=== PATIENT | male | born 1935 | race Caucasian/White ===

== ENCOUNTER → 2017-04-28 | Outpatient (CLI) | payer MEDICARE, BC ==
[2015-12-27 11:57] VITALS: BP 156/69
[~2017-04-28] MED LIST: AMLO2.5T PO; ASCO-78 PO; ASPI325T8 PO; CARV12.52 PO; LEVO50TA5 PO; LISI-334 PO; MULT-245 PO; SIMV10TA3 PO
== END | disposition home or self-care (01) ==
LOC: RT 09:53
PROVIDERS: ATTEND Psychiatry & Neurology Neurology
DX: I63.9 Cerebral infarction, unspecified (principal); R41.3 Other amnesia
CPT/HCPCS: 95816

== ENCOUNTER → 2017-05-05 | Outpatient (CLI) | payer MEDICARE, BC ==
[2015-12-27 11:57] VITALS: BP 156/69
[~2017-05-05] MED LIST changes: +GADOBUTROL 7.5 MMOL/7.5 ML VIAL IV ONE
--- NOTE | 2017-05-05 14:09 | RAD ---
MRI of the Brain without and with Contrast 05/05/2017 Clinical History: Recent seizures. Technique: Unenhanced T1-weighted sagittal and axial and FLAIR, T2-weighted, gradient echo and diffusion-weighted axial images of the brain were obtained. Additionally FLAIR coronal images through the temporal lobes were obtained. After the intravenous administration of 7.5 cc of Gadavist, enhanced T1-weighted axial and coronal images of the brain were obtained. Findings: Comparison studies dated 02/24/2016. There is generalized parenchymal atrophy. Patchy, confluent and multiple focal areas of abnormally increased signal intensity are seen within the periventricular and subcortical white matter of both cerebral hemispheres along with the ricardo on the FLAIR and T2-weighted images consistent with areas of small vessel ischemic disease. An area of encephalomalacia is seen involving the right occipital lobe extending to involve the medial right temporal lobe. No acute parenchymal abnormality is seen. No abnormal area of contrast enhancement is noted. No extra-axial fluid collection is seen. There is no MRI evidence of acute ischemia/infarction. Mild to moderate mucosal thickening in seen throughout the paranasal sinuses. There are minimal bilateral mastoid effusions. Normal flow voids are seen within the major vascular structures surrounding the brain parenchyma. Impression: No acute parenchymal abnormality is seen. Electronically signed by: Abhay Carvalho MD (05/05/2017 2:05 PM) [id number]
== END | disposition home or self-care (01) ==
LOC: MRI 10:04
PROVIDERS: ATTEND Psychiatry & Neurology Neurology
DX: R41.3 Other amnesia (principal)
CPT/HCPCS: 70553; A9585

== ENCOUNTER 2017-07-25 14:38 | Inpatient (IN) | payer MEDICARE, BC ==
[~2017-07-25] VITALS: Ht 175.3 cm; Wt 83.2 kg
[~2017-07-25 14:38] MED LIST changes: -GADOBUTROL 7.5 MMOL/7.5 ML VIAL IV ONE
[2017-07-25 14:57] LABS: HEMOGLOBIN 13.4 g/dL (13.0-17.5); RED BLOOD COUNT 4.37 x10^6/uL (4.30-5.70); RED CELL DISTRIBUTION WIDTH 13.7 % (11.5-14.5); WHITE BLOOD COUNT 8.3 x10^3/uL (4.0-11.0)
[2017-07-25 15:07] LABS: INR 1.1 (0.8-1.1); PROTHROMBIN TIME PATIENT 13.6 SEC (11.7-14.0)
[2017-07-25 15:10] LABS: CALCIUM 9.4 mg/dL (8.5-10.1); CREATININE 1.2 mg/dL (0.7-1.3)
--- NOTE | 2017-07-25 15:26 | RAD ---
CT head Indication: CVA, left-sided weakness. Technique: CT head without IV contrast Comparison: Previous MRI from 05/05/2017 Findings: No pathologic extra-axial fluid collection. Stable area of encephalomalacia is seen within the right occipital lobe extending to the occipital horn of the right lateral ventricle. There is mild diffuse cerebral and cerebellar atrophy with ex vacuo dilation of the ventricles. No acute intracranial bleed. Atherosclerotic disease of bilateral cavernous carotid arteries. Confluent periventricular and deep white matter low attenuation noted. Visualized orbits are within normal limits. No calvarial lesions. There is mucoperiosteal thickening noted of the ethmoid air cells. Mastoid air cells are clear. Impression: 1. Stable area of encephalomalacia in the right occipital lobe compatible with prior infarct. If concern for acute ischemic stroke is high, please consider MRI brain. 2. No acute intracranial bleed. 3. White matter changes likely secondary to chronic ischemic microvascular disease. PQRS Compliance Statement: One or more of the following individualized dose reduction techniques were utilized for this examination: 1. Automated exposure control 2. Adjustment of the mA and/or kV according to patient size 3. Use of iterative reconstruction technique
[2017-07-25] MEDS ORDERED: MORPHINE SULFATE 4 MG/ML DISP.SYRIN. IV ONE (15:30)
--- NOTE | 2017-07-25 15:46 | EKG ---
[facility] [address] [place] [address] Test Date: 2017-07-25 Test Time: 14:47:30 Pat Name: ALEX AVENDAÑO Department: Room: Gender: M Creeler: : 1935 Requested By: DIAMOND PENNINGTON Order Number: [id number] Reading MD: Domenico Castellanos Measurements Intervals [place] Rate: 57 P: CO: QRS: 5 QRSD: 94 T: 25 QT: 408 QTc: 400 Interpretive Statements SR Electronically Signed On 08-16-2017 14:30:13 CDT by Domenico Castellanos
--- NOTE | 2017-07-25 15:59 | PDOC2 ---
NEUROLOGY CONSULT Date of Admission Date of Admission DATE: 07/25/17 TIME: 15:57 Reason for Consult Reason for Consult: Stroke symptoms Referring Physician Referring Physician: Dr. 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 The echocardiogram and carotid Dopplers were negative. A few months later he had a seizure. He was started on levetiracetam but on higher doses had episodes of weakness and falling to one side. The dose was decreased and he did well until about 1 PM today when he got out of the car and was falling to the left side. He has gait disorder due to osteoarthritis in both knees, but was worse. He has recovered to baseline here in the emergency department. He does have a chronic left visual field cut. He also has some memory problems. No one has witnessed any recent seizures. There have been no head injuries. Past Medical History Cardiovascular: HTN, Hyperlipidemia, Valve insufficiency, Pulmonary hypertension CENTRAL NERVOUS SYSTEM: CVA, Vertigo Heme/Onc: Anemia NOS, B12 deficiency Hepatobiliary: Cirrhosis (nonalcoholic) Musculoskeletal: Osteoarthritis Renal/: Chronic renal insuff (CKD II) Endocrine: Hypothyroidism Past Surgical History Past Surgical History: No pertinent history Family History Family History: Cancer Social History Social History , no tobacco or alcohol, Current Medications Current Medications Current Medications Morphine Sulfate 4 mg 1X ONCE IV ; Start 07/25/17 at 15:30; Stop 07/25/17 at 15 :31; Status DC Aspirin (Ecotrin) 162 mg DAILYWBKFT PO ; Start 07/26/17 at 08:00 Active Scripts Active Vitamin C (Ascorbate Calcium) 500 Mg Tablet 500 Mg PO DAILY Reported Aspirin 325 Mg Tablet 1 Tab PO DAILY Multi Vitamin Daily (Multivitamin) 1 Each Tablet 1 Each PO DAILY Amlodipine Besylate 2.5 Mg Tablet 2.5 Mg PO DAILY Carvedilol 12.5 Mg Tablet 1 Tab PO BID Levothyroxine Sodium 50 Mcg Tablet 1 Tab PO DAILY Simvastatin 10 Mg Tablet 1 Tab PO QHS Lisinopril 20 Mg Tablet 20 Mg PO BID Allergies Allergies: Coded Allergies: Penicillins (Verified Allergy, Intermediate, Itching, 12/25/15) Sulfa (Sulfonamide Antibiotics) (Unverified Allergy, Intermediate, PARALISIS OF LOWER LEGS, 12/25/15) tamsulosin (Verified Allergy, Intermediate, hives, 12/25/15) ROS Review of System Patient denies fevers, chills, weight loss, dyspnea, angina, abdominal pain, change in bowels, or dysuria. 14 point review of systems is negative. Physical Exam Physical Examination PHYSICAL EXAMINATION: Vital signs: see above. General appearance is normal and in no acute distress. HEENT: Normocephalic and nontraumatic. Eyes, nose, ears, and throat are unremarkable. Neck is supple. No lymphadenopathy. No bruits are heard over the carotid artery. No crepitus. NEUROLOGICAL EXAMINATION: Mental Status Examination: Alert. Oriented to time, place, and person. Answers questions and follows commends. Pupils are equal round and reactive to light and accommodation. Extraocular movements are intact. Visual bradley: left field cut. No motor or sensory deficits on the facial exam. Uvula in the midline and the soft palate elevated symmetrically. No deviation of the tongue to any direction. Gross hearing is normal. Shoulder shrug normal. Muscle tone is normal. Muscle strength is 5. Deep tendon reflexes are 1+ all around. Plantar reflex is with flexion response bilaterally. [id number] test performance is accurate. Alternative movements are accurate. Gait markedly arthritic. Sensory exam shows no deficits. No cerebellar signs are elicited. Vitals VITALS Vital Signs Date Time Temp Pulse Resp B/P (MAP) Pulse Ox O2 Delivery O2 Flow Rate FiO2 07/25/17 14:49 97.9 62 18 141/93 (109) 97 Room Air 97.9 Labs Labs Laboratory Tests Test 07/25/17 14:45 07/25/17 14:50 Glucose (Fingerstick) 99 mg/dL (70-99) White Blood Count 8.3 x10^3/uL (4.0-11.0) Red Blood Count 4.37 x10^6/uL (4.30-5.70) Hemoglobin 13.4 g/dL (13.0-17.5) Hematocrit 39.0 % (39.0-53.0) Mean Corpuscular Volume 89 fL (79-100) Mean Corpuscular Hemoglobin 31 pg (25-35) Mean Corpuscular Hemoglobin Concent 34 g/dL (31-37) Red Cell Distribution Width 13.7 % (11.5-14.5) Platelet Count 178 x10^3/uL (140-400) Prothrombin Time 13.6 SEC (11.7-14.0) Prothromb Time International Ratio 1.1 (0.8-1.1) Activated Partial Thromboplast Time 33 SEC (24-38) Sodium Level 142 mmol/L (136-145) Potassium Level 4.0 mmol/L (3.5-5.1) Chloride Level 103 mmol/L (98-107) Carbon Dioxide Level 32 mmol/L (21-32) Anion Gap 7 (6-14) Blood Urea Nitrogen 18 mg/dL (8-26) Creatinine 1.2 mg/dL (0.7-1.3) Estimated GFR (Cockcroft-Gault) 58.0 Glucose Level 106 mg/dL (70-99) Calcium Level 9.4 mg/dL (8.5-10.1) Laboratory Tests Test 07/25/17 14:45 07/25/17 14:50 Glucose (Fingerstick) 99 mg/dL (70-99) White Blood Count 8.3 x10^3/uL (4.0-11.0) Red Blood Count 4.37 x10^6/uL (4.30-5.70) Hemoglobin 13.4 g/dL (13.0-17.5) Hematocrit 39.0 % (39.0-53.0) Mean Corpuscular Volume 89 fL (79-100) Mean Corpuscular Hemoglobin 31 pg (25-35) Mean Corpuscular Hemoglobin Concent 34 g/dL (31-37) Red Cell Distribution Width 13.7 % (11.5-14.5) Platelet Count 178 x10^3/uL (140-400) Prothrombin Time 13.6 SEC (11.7-14.0) Prothromb Time International Ratio 1.1 (0.8-1.1) Activated Partial Thromboplast Time 33 SEC (24-38) Sodium Level 142 mmol/L (136-145) Potassium Level 4.0 mmol/L (3.5-5.1) Chloride Level 103 mmol/L (98-107) Carbon Dioxide Level 32 mmol/L (21-32) Anion Gap 7 (6-14) Blood Urea Nitrogen 18 mg/dL (8-26) Creatinine 1.2 mg/dL (0.7-1.3) Estimated GFR (Cockcroft-Gault) 58.0 Glucose Level 106 mg/dL (70-99) Calcium Level 9.4 mg/dL (8.5-10.1) Images Images CT head: No pathologic extra-axial fluid collection. Stable area of encephalomalacia is seen within the right occipital lobe extending to the occipital horn of the right lateral ventricle. There is mild diffuse cerebral and cerebellar atrophy with ex vacuo dilation of the ventricles. No acute intracranial bleed. Atherosclerotic disease of bilateral cavernous carotid arteries. Confluent periventricular and deep white matter low attenuation noted. Visualized orbits are within normal limits. No calvarial lesions. There is mucoperiosteal thickening noted of the ethmoid air cells. Mastoid air cells are clear. Impression: 1. Stable area of encephalomalacia in the right occipital lobe compatible with prior infarct. If concern for acute ischemic stroke is high, please consider MRI brain. 2. No acute intracranial bleed. 3. White matter changes likely secondary to chronic ischemic microvascular disease. Assessment/Plan Assessment/Plan Impression: Falling to the left. In the past this was related to levetiracetam, but he is not on a very high-dose. I find no evidence of acute stroke or transient ischemic attack. His exam is now nonfocal. Recommendations: MRI of the brain Lipid profile Continue aspirin Hold off on additional stroke studies unless MRI shows acute stroke Rehabilitation modalities Not a candidate for alteplase as symptoms have resolved. I discussed with the patient's family. Thank you for letting me help with the patient's care. SHANNON BRANDON MD Jul 25, 2017 15:59
[2017-07-25] MEDS ORDERED: ENOXAPARIN 40 MG/0.4 ML SYRINGE. SQ SCH (16:00)
[2017-07-25] MEDS ORDERED: ACETAMINOPHEN 650 MG SUPP.RECT. PR PRN (16:00)
[2017-07-25] MEDS ORDERED: ACETAMINOPHEN 500 MG TABLET PO PRN (16:00)
[2017-07-25 16:23] LABS: CHOLESTEROL/HDL RATIO 2.9
[2017-07-25] MEDS ORDERED: ONDANSETRON PF 4 MG/2 ML VIAL. IV PRN (17:00)
--- NOTE | 2017-07-25 20:29 | PHYS DOC ---
Past Medical History Past Medical History: CVA, High Cholesterol, Hypertension, Hypothyroid, Pneumonia, TIA Past Surgical History: No Surgical History Additional Information: Quit about 40 years ago. Alcohol Use: None Drug Use: None Adult General Chief Complaint Chief Complaint: NEURO SYMPTOMS/DEFICITS HPI HPI Patient is a 82 year old male who presents with stroke activation. Patient woke with generalized weakness this morning at 11:20 AM. Last known normal was previous evening prior to bedtime. Patient noted to have left lower extremity weakness with loss of balance and leaning to the left per patient's son who is a nurse. Patient denies back pain, injury or fall. Denies headache, blurred vision, upper extremity weakness loss of sensation, or lower extremity loss of sensation. History of previous CVA and seizure disorder. No other acute symptoms or complaints. [] Review of Systems Review of Systems Review of symptoms as per history of present illness. All other review symptoms are negative. Current Medications Current Medications Current Medications Medications (Trade) Dose Ordered Sig/Tonya Start Time Stop Time Status Last Admin Dose Admin Acetaminophen (Acetaminophen Supp) 650 mg PRN Q4HRS PRN 07/25/17 16:00 Acetaminophen (Tylenol) 650 mg PRN Q4HRS PRN 07/25/17 16:00 Enoxaparin Sodium (Lovenox 40mg Syringe) 40 mg Q24H 07/25/17 16:00 07/25/17 16:16 40 MG Morphine Sulfate 4 mg 1X ONCE 07/25/17 15:30 07/25/17 15:31 DC Ondansetron HCl (Zofran) 4 mg PRN Q8HRS PRN 07/25/17 17:00 07/26/17 16:59 Allergies Allergies Allergies Coded Allergies Type Severity Reaction Last Updated Verified Penicillins Allergy Intermediate Itching 12/25/15 Yes Sulfa (Sulfonamide Antibiotics) Allergy Intermediate PARALISIS OF LOWER LEGS No tamsulosin Allergy Intermediate hives 12/25/15 Yes Physical Exam Physical Exam Constitutional: Well developed, well nourished, no acute distress, non-toxic appearance. [] HENT: Normocephalic, atraumatic, bilateral external ears normal, oropharynx moist, no oral exudates, nose normal. [] Eyes: PERRLA, EOMI, conjunctiva normal, no discharge. [] Neck: Normal range of motion, no tenderness, supple, no stridor. [] Cardiovascular:Heart rate regular rhythm, no murmur [] Lungs & Thorax: Bilateral breath sounds clear to auscultation [] Abdomen: Bowel sounds normal, soft, no tenderness, no masses, no pulsatile masses. [] Skin: Warm, dry, no erythema, no rash. [] Back: No tenderness, no CVA tenderness. [] Extremities: No tenderness, no cyanosis, no clubbing, ROM intact, no edema. [] Neurologic: Alert and oriented X 3, normal motor function, normal sensory function, no focal deficits noted. NIH stroke score 0. [] Psychologic: Affect normal, judgement normal, mood normal. [] Current Patient Data Vital Signs Vital Signs Date Time Temp Pulse Resp B/P (MAP) Pulse Ox O2 Delivery O2 Flow Rate FiO2 07/25/17 16:50 60 23 143/74 (97) 93 Room Air 07/25/17 14:49 97.9 97.9 Lab Values Laboratory Tests Test 07/25/17 14:45 07/25/17 14:50 Glucose (Fingerstick) 99 mg/dL (70-99) White Blood Count 8.3 x10^3/uL (4.0-11.0) Red Blood Count 4.37 x10^6/uL (4.30-5.70) Hemoglobin 13.4 g/dL (13.0-17.5) Hematocrit 39.0 % (39.0-53.0) Mean Corpuscular Volume 89 fL (79-100) Mean Corpuscular Hemoglobin 31 pg (25-35) Mean Corpuscular Hemoglobin Concent 34 g/dL (31-37) Red Cell Distribution Width 13.7 % (11.5-14.5) Platelet Count 178 x10^3/uL (140-400) Prothrombin Time 13.6 SEC (11.7-14.0) Prothrombin Time INR 1.1 (0.8-1.1) PTT 33 SEC (24-38) Sodium Level 142 mmol/L (136-145) Potassium Level 4.0 mmol/L (3.5-5.1) Chloride Level 103 mmol/L (98-107) Carbon Dioxide Level 32 mmol/L (21-32) Anion Gap 7 (6-14) Blood Urea Nitrogen 18 mg/dL (8-26) Creatinine 1.2 mg/dL (0.7-1.3) Estimated GFR (Cockcroft-Gault) 58.0 Glucose Level 106 mg/dL (70-99) H Calcium Level 9.4 mg/dL (8.5-10.1) Triglycerides Level 110 mg/dL (0-150) Cholesterol Level 169 mg/dL (0-200) LDL Cholesterol, Calculated 89 mg/dL (0-100) VLDL Cholesterol, Calculated 22 mg/dL (0-40) Non-HDL Cholesterol Calculated 111 mg/dL (0-129) HDL Cholesterol 58 mg/dL (40-60) Cholesterol/HDL Ratio 2.9 Laboratory Tests 07/25/17 14:50 Laboratory Tests 07/25/17 14:50 EKG EKG [] Radiology/Procedures Radiology/Procedures [CT head: No acute intercranial disease per radiology report.] Course & Med Decision Making Course & Med Decision Making Pertinent Labs and Imaging studies reviewed. (See chart for details) [CT head nonacute. NIH stroke score 0. Baby aspirin given. Dr. Welsh in ED for consultation. Patient to be admitted.] Dragon Disclaimer Dragon Disclaimer This electronic medical record was generated, in whole or in part, using a voice recognition dictation system. Departure Departure Impression: Primary Impression: Left leg weakness Additional Impression: CVA (cerebral vascular accident) Disposition: ADMITTED INPATIENT Admitting Physician: Kristie Hoffman Condition: STABLE Problem Qualifiers DIAMOND PENNINGTON DO Jul 25, 2017 20:29
[2017-07-25] MEDS ORDERED: LEVE500T6 PO (21:01)
[2017-07-25] MEDS ORDERED: CALC-494 PO (21:01)
[2017-07-25] MEDS ORDERED: CLOP75TA PO (21:01)
[2017-07-25] MEDS ORDERED: FLUT16SP NS (21:01)
[2017-07-25] MEDS: LISINOPRIL 20 MG TABLET PO SCH (21:39)
[2017-07-25] MEDS: levETIRAcetam 500 MG TABLET PO SCH (21:39)
[2017-07-25] MEDS ORDERED: SIMVASTATIN 10 MG TABLET PO SCH (22:00)
[2017-07-25 23:10] VITALS: BP 155/65
[2017-07-26 03:20] VITALS: BP 108/60
[2017-07-26 06:03] LABS: BASO # 0.1 x10^3/uL (0.0-0.2); BASO % 1 % (0-3); EOS % 7 % (0-3); HEMATOCRIT 37.4 % (39.0-53.0); HEMOGLOBIN 13.2 g/dL (13.0-17.5); LYMPH # 2.7 x10^3/uL (1.0-4.8); LYMPH % 32 % (24-48); MEAN CORPUSCULAR HEMOGLOBIN 31 pg (25-35); MEAN CORPUSCULAR HGB CONC 35 g/dL (31-37); MEAN CORPUSCULAR VOLUME 88 fL (79-100); MONO % 7 % (0-9); NEUT % 53 % (31-73); PLATELET COUNT 173 x10^3/uL (140-400); RED BLOOD COUNT 4.27 x10^6/uL (4.30-5.70); RED CELL DISTRIBUTION WIDTH 13.8 % (11.5-14.5); WHITE BLOOD COUNT 8.2 x10^3/uL (4.0-11.0)
[2017-07-26 06:30] LABS: ALBUMIN 3.6 g/dL (3.4-5.0); ALBUMIN/GLOBULIN RATIO 0.9 (1.0-1.7); CALCIUM 9.1 mg/dL (8.5-10.1); CREATININE 1.1 mg/dL (0.7-1.3); GFR 64.1; MAGNESIUM 2.3 mg/dL (1.8-2.4); POTASSIUM 3.4 mmol/L (3.5-5.1); TOTAL BILIRUBIN 0.5 mg/dL (0.2-1.0); TOTAL PROTEIN 7.7 g/dL (6.4-8.2)
[2017-07-26] MEDS ORDERED: LEVOTHYROXINE 50 MCG TABLET PO SCH (07:00)
--- NOTE | 2017-07-26 07:12 | EKG ---
[facility] [address] [place] [address] Test Date: 2017-07-25 Test Time: 14:45:52 Pat Name: ALEX AVENDAÑO Department: Room: [facility] Gender: M Jamb Cutter: : 1935 Requested By: WILY MOTTA Order Number: [id number] Reading MD: Domenico Castellanos Measurements Intervals [place] Rate: 64 P: ID: QRS: -6 QRSD: 92 T: 12 QT: 404 QTc: 421 Interpretive Statements SR NON-SPECIFIC ST/T CHANGES Electronically Signed On 08-16-2017 14:30:04 CDT by Domenico Castellanos
[2017-07-26 07:21] VITALS: BP 127/63
[2017-07-26] MEDS: ASPIRIN ENTERIC COATED 81 MG TABLET.DR. PO SCH (08:00)
[2017-07-26] MEDS ORDERED: CARVEDILOL 12.5 MG TABLET. PO SCH (08:00)
[2017-07-26] MEDS: levETIRAcetam 500 MG TABLET PO SCH (08:01)
[2017-07-26] MEDS: LISINOPRIL 20 MG TABLET PO SCH (08:02)
--- NOTE | 2017-07-26 08:59 | PDOC1 ---
SASHASHAE CNA 07/26/17 0859: HISTORY AND PHYSICAL Chief Complaint Chief Complaint This 82 year old male has been admitted with a chief complaint of weakness lower legs and leaning to left when walking similar to episode earlier this year that was associated with Keppra dose. He was seen last week by this SECURITY INTERN and his evaluation in the office was negative for any new findings. He was diagnosed with seizures earlier this year during admission and started on high dose of Keppra. He was seen in the office after d/c from and the Keppra dose was reduced with PT in the home ordered. His symptoms of LE weakness and leaning to the left resolved. Mrs. Guzman reports he got out of bed yesterday morning and pointed to his lower legs by the knees. She was not sure what he said and he was walking fine. During the day they ran errands and when the stopped to eat Garret got out of the car, could not walk due to extreme weakness of his LE bilaterally and leaning to the left. They immediately brought him to the ED for evaluation. A CT of the head was negative for acute findings. Labs were unremarkable. A UA was obtained per Mrs. Guzman but no result is available in the EMR. Neurology has been consulted and an MRI of the brain is pending. PT and OT have been ordered. 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 12/2015 occipital CVA residual L homonymous hemianopsia ), Seizure (2017 new onset ), Vertigo (intermittent chronic ) Heme/Onc: B12 deficiency Hepatobiliary: Cirrhosis (nonalcoholic) Musculoskeletal: Osteoarthritis Renal/: Chronic renal insuff (CKD II ) Endocrine: Hypothyroidism Past Surgical History Past Surgical History: No pertinent history Past Family History Family History: Cancer (father lung 71yo; mother breast 45yo ; ), Coronary Artery Disease (brother ), Other (seizures son ) Review of Symptoms Review of Symptoms A 14 point ROS was completed with the following noted as positive: per HPI Other systems reviewed and negative. Medications Medications reviewed and reconciled Allergy Allergies Coded Allergies Type Severity Reaction Last Updated Verified Penicillins Allergy Intermediate Itching 12/25/15 Yes Sulfa (Sulfonamide Antibiotics) Allergy Intermediate PARALISIS OF LOWER LEGS No tamsulosin Allergy Intermediate hives 12/25/15 Yes Physical Exam Physical Exam General appearance - alert,well appearing, and in no distress and oriented to person, place, and time Mental Status - alert, oriented to person, place, and time, affect appropriate to mood Head - normal Chest - clear to auscultation, no wheezes, rales or rhonchi, symmetric air entry Heart - S1 and S2 normal Abdomen - soft, nontender, nondistended, no masses or organomegaly Neurological - alert and oriented Musculoskeletal - no muscular tenderness noted Extremities - no pedal edema Skin - warm and dry VTE Prophylaxis Ordered VTE Prophylaxis Devices: Yes VTE Pharmacological Prophylaxi: No Assessment Labs Laboratory Tests Test 07/25/17 14:45 07/25/17 14:50 07/26/17 05:25 Glucose (Fingerstick) 99 mg/dL (70-99) White Blood Count 8.3 x10^3/uL (4.0-11.0) 8.2 x10^3/uL (4.0-11.0) Red Blood Count 4.37 x10^6/uL (4.30-5.70) 4.27 x10^6/uL (4.30-5.70) Hemoglobin 13.4 g/dL (13.0-17.5) 13.2 g/dL (13.0-17.5) Hematocrit 39.0 % (39.0-53.0) 37.4 % (39.0-53.0) Mean Corpuscular Volume 89 fL (79-100) 88 fL (79-100) Mean Corpuscular Hemoglobin 31 pg (25-35) 31 pg (25-35) Mean Corpuscular Hemoglobin Concent 34 g/dL (31-37) 35 g/dL (31-37) Red Cell Distribution Width 13.7 % (11.5-14.5) 13.8 % (11.5-14.5) Platelet Count 178 x10^3/uL (140-400) 173 x10^3/uL (140-400) Prothrombin Time 13.6 SEC (11.7-14.0) Prothromb Time International Ratio 1.1 (0.8-1.1) Activated Partial Thromboplast Time 33 SEC (24-38) Sodium Level 142 mmol/L (136-145) 141 mmol/L (136-145) Potassium Level 4.0 mmol/L (3.5-5.1) 3.4 mmol/L (3.5-5.1) Chloride Level 103 mmol/L (98-107) 104 mmol/L (98-107) Carbon Dioxide Level 32 mmol/L (21-32) 30 mmol/L (21-32) Anion Gap 7 (6-14) 7 (6-14) Blood Urea Nitrogen 18 mg/dL (8-26) 19 mg/dL (8-26) Creatinine 1.2 mg/dL (0.7-1.3) 1.1 mg/dL (0.7-1.3) Estimated GFR (Cockcroft-Gault) 58.0 64.1 Glucose Level 106 mg/dL (70-99) 90 mg/dL (70-99) Calcium Level 9.4 mg/dL (8.5-10.1) 9.1 mg/dL (8.5-10.1) Triglycerides Level 110 mg/dL (0-150) Cholesterol Level 169 mg/dL (0-200) LDL Cholesterol, Calculated 89 mg/dL (0-100) VLDL Cholesterol, Calculated 22 mg/dL (0-40) Non-HDL Cholesterol Calculated 111 mg/dL (0-129) HDL Cholesterol 58 mg/dL (40-60) Cholesterol/HDL Ratio 2.9 Neutrophils (%) (Auto) 53 % (31-73) Lymphocytes (%) (Auto) 32 % (24-48) Monocytes (%) (Auto) 7 % (0-9) Eosinophils (%) (Auto) 7 % (0-3) Basophils (%) (Auto) 1 % (0-3) Neutrophils # (Auto) 4.3 x10^3uL (1.8-7.7) Lymphocytes # (Auto) 2.7 x10^3/uL (1.0-4.8) Monocytes # (Auto) 0.5 x10^3/uL (0.0-1.1) Eosinophils # (Auto) 0.6 x10^3/uL (0.0-0.7) Basophils # (Auto) 0.1 x10^3/uL (0.0-0.2) BUN/Creatinine Ratio 17 (6-20) Magnesium Level 2.3 mg/dL (1.8-2.4) Total Bilirubin 0.5 mg/dL (0.2-1.0) Aspartate Amino Transf (AST/SGOT) 20 U/L (15-37) Alanine Aminotransferase (ALT/SGPT) 20 U/L (16-63) Alkaline Phosphatase 46 U/L (46-116) Total Protein 7.7 g/dL (6.4-8.2) Albumin 3.6 g/dL (3.4-5.0) Albumin/Globulin Ratio 0.9 (1.0-1.7) Laboratory Tests Test 07/25/17 14:45 07/25/17 14:50 07/26/17 05:25 Glucose (Fingerstick) 99 mg/dL (70-99) White Blood Count 8.3 x10^3/uL (4.0-11.0) 8.2 x10^3/uL (4.0-11.0) Red Blood Count 4.37 x10^6/uL (4.30-5.70) 4.27 x10^6/uL (4.30-5.70) Hemoglobin 13.4 g/dL (13.0-17.5) 13.2 g/dL (13.0-17.5) Hematocrit 39.0 % (39.0-53.0) 37.4 % (39.0-53.0) Mean Corpuscular Volume 89 fL (79-100) 88 fL (79-100) Mean Corpuscular Hemoglobin 31 pg (25-35) 31 pg (25-35) Mean Corpuscular Hemoglobin Concent 34 g/dL (31-37) 35 g/dL (31-37) Red Cell Distribution Width 13.7 % (11.5-14.5) 13.8 % (11.5-14.5) Platelet Count 178 x10^3/uL (140-400) 173 x10^3/uL (140-400) Prothrombin Time 13.6 SEC (11.7-14.0) Prothromb Time International Ratio 1.1 (0.8-1.1) Activated Partial Thromboplast Time 33 SEC (24-38) Sodium Level 142 mmol/L (136-145) 141 mmol/L (136-145) Potassium Level 4.0 mmol/L (3.5-5.1) 3.4 mmol/L (3.5-5.1) Chloride Level 103 mmol/L (98-107) 104 mmol/L (98-107) Carbon Dioxide Level 32 mmol/L (21-32) 30 mmol/L (21-32) Anion Gap 7 (6-14) 7 (6-14) Blood Urea Nitrogen 18 mg/dL (8-26) 19 mg/dL (8-26) Creatinine 1.2 mg/dL (0.7-1.3) 1.1 mg/dL (0.7-1.3) Estimated GFR (Cockcroft-Gault) 58.0 64.1 Glucose Level 106 mg/dL (70-99) 90 mg/dL (70-99) Calcium Level 9.4 mg/dL (8.5-10.1) 9.1 mg/dL (8.5-10.1) Triglycerides Level 110 mg/dL (0-150) Cholesterol Level 169 mg/dL (0-200) LDL Cholesterol, Calculated 89 mg/dL (0-100) VLDL Cholesterol, Calculated 22 mg/dL (0-40) Non-HDL Cholesterol Calculated 111 mg/dL (0-129) HDL Cholesterol 58 mg/dL (40-60) Cholesterol/HDL Ratio 2.9 Neutrophils (%) (Auto) 53 % (31-73) Lymphocytes (%) (Auto) 32 % (24-48) Monocytes (%) (Auto) 7 % (0-9) Eosinophils (%) (Auto) 7 % (0-3) Basophils (%) (Auto) 1 % (0-3) Neutrophils # (Auto) 4.3 x10^3uL (1.8-7.7) Lymphocytes # (Auto) 2.7 x10^3/uL (1.0-4.8) Monocytes # (Auto) 0.5 x10^3/uL (0.0-1.1) Eosinophils # (Auto) 0.6 x10^3/uL (0.0-0.7) Basophils # (Auto) 0.1 x10^3/uL (0.0-0.2) BUN/Creatinine Ratio 17 (6-20) Magnesium Level 2.3 mg/dL (1.8-2.4) Total Bilirubin 0.5 mg/dL (0.2-1.0) Aspartate Amino Transf (AST/SGOT) 20 U/L (15-37) Alanine Aminotransferase (ALT/SGPT) 20 U/L (16-63) Alkaline Phosphatase 46 U/L (46-116) Total Protein 7.7 g/dL (6.4-8.2) Albumin 3.6 g/dL (3.4-5.0) Albumin/Globulin Ratio 0.9 (1.0-1.7) Plan Plan IMPRESSION: 1. Lower extremity weakness with leaning to left side 2. seizures onset 2016 3. 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 accelerated HTN 5. hyperlipidemia 6. hypothyroidism 7. mild CM 8. moderate chronic PCL malnutrition 9. moderate weakness and debility 10. anemia B12 deficiency 11. diastolic CHF EF 55-60% 12. moderate AR 13. mild MR 14. 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 h/o CVA 12/2015 post large infarct R temporal lobe PLAN: 07/26/17 lower extremity weakness, lean to left - CT head acute negative - MRI pending - neurology consult - check thyroid and UA - doubt Keppra is cause - PT OT consult - fall precautions - Mg 2.3 hypokalemia - Admit K 4.0 07/25 K 3.4 - 20KCL po x 1 - recheck AM seizures - continue Keppra HTN - resume home meds hyperlipidemia - Lipids controlled continue statin elevated BS - check Hba1c, no h/o DM family DVt/ GI prophylaxis - Pepcid bid - SCD/THEA - ambulate - stop lovenox, For more details regarding further plans, please refer to the orders. Will plan home with HHN PT OT. DC initiated. WILY MOTTA MD 07/26/17 3998: HISTORY AND PHYSICAL Plan Plan TIA. Await MRI- if ok discharge today.Has some issues with voiding due to BPH. D/w patient and . The patient was seen and examined by me. Chart reviewed and plan of care formulated. Discussed with, reviewed and agree with FOOTBALL PAD REPAIRER's notes, plan of care and orders with modifications as necessary. For more details regarding further plans, please refer to the orders. SHAE BAEZ APRN Jul 26, 2017 08:59 WILY MOTTA MD Jul 26, 2017 09:47
[2017-07-26] MEDS ORDERED: ASCORBIC ACID 500 MG TABLET PO SCH (09:00)
[2017-07-26] MEDS ORDERED: CLOPIDOGREL BISULFATE 75 MG TABLET PO SCH (09:00)
[2017-07-26] MEDS ORDERED: CALCIUM CARB/VIT D3 500/200 TABLET. PO SCH (09:00)
[2017-07-26] MEDS ORDERED: amLODIPine BESYLATE 2.5 MG TABLET PO SCH (09:00)
[2017-07-26] MEDS ORDERED: MULTIVITAMIN with MINERAL TABLET. PO SCH (09:00)
[2017-07-26] MEDS ORDERED: POTASSIUM CHLORIDE 20 MEQ TABLET.ER. PO ONE (09:00)
[2017-07-26] MEDS ORDERED: FLUTICASONE 50MCG/NASAL SPRAY 16GM BOTTLE. NS SCH (09:00)
--- NOTE | 2017-07-26 09:04 | DISCH ---
DISCHARGE FINAL DIAGNOSIS Problems Medical Problems: (1) CVA (cerebral vascular accident) Status: Acute (2) Left leg weakness Status: Acute CONDITION ON DISCHARGE: Stable HOME HEALTH: Yes PT. HAS FUNCTIONAL LIMITATIONS: Yes FACE TO FACE ENCOUNTER: Yes POST DISCHARGE ORDERS ACTIVITY ORDERS: Activity as tolerated WEIGHT BEARING STATUS: Full weight bearing DIET AFTER DISCHARGE: Cardiac FOLLOW-UP PHYSICIAN FOLLOW-UP: Tuesday next week TREATMENT/EQUIPMENT ORDERS ADAPTIVE EQUIPMENT NEEDED: Walker (as needed ) SHAE BAEZ APRN Jul 26, 2017 09:04
--- NOTE | 2017-07-26 09:08 | DISCH ---
DISCHARGE WITH HOME HEALTH DISCHARGE INFORMATION: Final Diagnosis: Problems Medical Problems: (1) CVA (cerebral vascular accident) Status: Acute (2) Left leg weakness Status: Acute Condition on Discharge: Stable HOME HEALTH: Face to Face: I certify this patient is under my care and that my nurse practitioner working with me, had a face to face encounter that meets the physician face to face encounter requirements with this patient on [07/26/17]. Medical Condition(s): CVA Senior Care For: Assess/Skilled Observatio Physical Therapy For: Evalulation/Treatment Occupational Therapy For: Evaluation/Treatment FOLLOW-UP: Follow up with: Dr. Hernandez or Martínez on Tuesday next week TREATMENT/EQUIPMENT ORDERS Adaptive Equipment Issued: Walker (as needed ) CERTIFICATION STATEMENT: Certification Statement: Certification Statement: Based on the above finding, I certify that this patient is confined to the home and needs intermittent fpc care, physical therapy and/or speech therapy, or continues to need occupational therapy.~ This patient is under my care, and I have initiated the establishment of the plan of care.~ This patient will be followed by myself or a community physician who will periodically review the plan of care. SHAE BAEZ APRN Jul 26, 2017 09:08
[2017-07-26 10:28] LABS: BILIRUBIN,URINE NEGATIVE (NEG); GLUCOSE,URINE NEGATIVE (NEG); NITRITE,URINE NEGATIVE (NEG); PROTEIN,URINE NEGATIVE (NEG-TRACE); UROBILINOGEN,URINE 0.2 mg/dL (0.2 mg/dL)
[2017-07-26 10:54] LABS: BACTERIA,URINE FEW /HPF (0-FEW); RBC,URINE OCC /HPF (0-2); WBC,URINE RARE /HPF (0-4)
[2017-07-26 11:35] VITALS: BP 126/54
--- NOTE | 2017-07-26 12:49 | PDOC ---
PROGRESS NOTES Assessment Problems Medical Problems: (1) CVA (cerebral vascular accident) Status: Acute (2) Left leg weakness Status: Acute Falling to the left. In the past this was related to levetiracetam, but he is not on a very high-dose. I find no evidence of acute stroke or transient ischemic attack. His exam is now nonfocal. Prior stroke with Left field cut Plan Await MRI of the brain Is on Aspirin, Plavix, Statin Hold off on additional stroke studies unless MRI shows acute stroke Rehabilitation modalities Okay for discharge if MRI negative Subjective No recurrence of symptoms Objective Vital Signs Date Time Temp Pulse Resp B/P (MAP) Pulse Ox O2 Delivery O2 Flow Rate FiO2 07/26/17 11:35 98.1 47 20 126/54 (78) 96 Room Air 98.1 PHYSICAL EXAM Alert. Oriented to time, place and person. PERRL. EOMI. CN: Left homonymous hemianopsia, otherwise no focal findings. Muscle tone: normal. Muscle strength: 5/5 DTR: 1+ Plantar reflex: flexor Gait: not examined in bed. Sensory exam: no abnormal findings. No cerebellar signs elicited. Review of Relevant I have reviewed the following items kike (where applicable) has been applied. Labs Laboratory Tests Test 07/25/17 14:45 07/25/17 14:50 07/26/17 05:25 07/26/17 09:15 Glucose (Fingerstick) 99 mg/dL (70-99) White Blood Count 8.3 x10^3/uL (4.0-11.0) 8.2 x10^3/uL (4.0-11.0) Red Blood Count 4.37 x10^6/uL (4.30-5.70) 4.27 x10^6/uL (4.30-5.70) Hemoglobin 13.4 g/dL (13.0-17.5) 13.2 g/dL (13.0-17.5) Hematocrit 39.0 % (39.0-53.0) 37.4 % (39.0-53.0) Mean Corpuscular Volume 89 fL (79-100) 88 fL (79-100) Mean Corpuscular Hemoglobin 31 pg (25-35) 31 pg (25-35) Mean Corpuscular Hemoglobin Concent 34 g/dL (31-37) 35 g/dL (31-37) Red Cell Distribution Width 13.7 % (11.5-14.5) 13.8 % (11.5-14.5) Platelet Count 178 x10^3/uL (140-400) 173 x10^3/uL (140-400) Prothrombin Time 13.6 SEC (11.7-14.0) Prothromb Time International Ratio 1.1 (0.8-1.1) Activated Partial Thromboplast Time 33 SEC (24-38) Sodium Level 142 mmol/L (136-145) 141 mmol/L (136-145) Potassium Level 4.0 mmol/L (3.5-5.1) 3.4 mmol/L (3.5-5.1) Chloride Level 103 mmol/L (98-107) 104 mmol/L (98-107) Carbon Dioxide Level 32 mmol/L (21-32) 30 mmol/L (21-32) Anion Gap 7 (6-14) 7 (6-14) Blood Urea Nitrogen 18 mg/dL (8-26) 19 mg/dL (8-26) Creatinine 1.2 mg/dL (0.7-1.3) 1.1 mg/dL (0.7-1.3) Estimated GFR (Cockcroft-Gault) 58.0 64.1 Glucose Level 106 mg/dL (70-99) 90 mg/dL (70-99) Calcium Level 9.4 mg/dL (8.5-10.1) 9.1 mg/dL (8.5-10.1) Triglycerides Level 110 mg/dL (0-150) Cholesterol Level 169 mg/dL (0-200) LDL Cholesterol, Calculated 89 mg/dL (0-100) VLDL Cholesterol, Calculated 22 mg/dL (0-40) Non-HDL Cholesterol Calculated 111 mg/dL (0-129) HDL Cholesterol 58 mg/dL (40-60) Cholesterol/HDL Ratio 2.9 Neutrophils (%) (Auto) 53 % (31-73) Lymphocytes (%) (Auto) 32 % (24-48) Monocytes (%) (Auto) 7 % (0-9) Eosinophils (%) (Auto) 7 % (0-3) Basophils (%) (Auto) 1 % (0-3) Neutrophils # (Auto) 4.3 x10^3uL (1.8-7.7) Lymphocytes # (Auto) 2.7 x10^3/uL (1.0-4.8) Monocytes # (Auto) 0.5 x10^3/uL (0.0-1.1) Eosinophils # (Auto) 0.6 x10^3/uL (0.0-0.7) Basophils # (Auto) 0.1 x10^3/uL (0.0-0.2) BUN/Creatinine Ratio 17 (6-20) Magnesium Level 2.3 mg/dL (1.8-2.4) Total Bilirubin 0.5 mg/dL (0.2-1.0) Aspartate Amino Transf (AST/SGOT) 20 U/L (15-37) Alanine Aminotransferase (ALT/SGPT) 20 U/L (16-63) Alkaline Phosphatase 46 U/L (46-116) Total Protein 7.7 g/dL (6.4-8.2) Albumin 3.6 g/dL (3.4-5.0) Albumin/Globulin Ratio 0.9 (1.0-1.7) Thyroid Stimulating Hormone (TSH) 5.465 uIU/mL (0.358-3.74) Free Thyroxine 1.00 ng/dL (0.76-1.46) Urine Collection Type Unknown Urine Color Yellow Urine Clarity Clear Urine pH 6.0 Urine Specific [place] 1.025 Urine Protein Negative mg/dL (NEG-TRACE) Urine Glucose (UA) Negative mg/dL (NEG) Urine Ketones (Stick) Negative mg/dL (NEG) Urine Blood Negative (NEG) Urine Nitrite Negative (NEG) Urine Bilirubin Negative (NEG) Urine Urobilinogen Dipstick 0.2 mg/dL (0.2 mg/dL) Urine Leukocyte Esterase Negative (NEG) Urine RBC Occ /HPF (0-2) Urine WBC Rare /HPF (0-4) Urine Squamous Epithelial Cells None /LPF Urine Bacteria Few /HPF (0-FEW) Urine Hyaline Casts Few /HPF Urine Mucus Slight /LPF Laboratory Tests Test 07/25/17 14:45 07/25/17 14:50 07/26/17 05:25 07/26/17 09:15 Glucose (Fingerstick) 99 mg/dL (70-99) White Blood Count 8.3 x10^3/uL (4.0-11.0) 8.2 x10^3/uL (4.0-11.0) Red Blood Count 4.37 x10^6/uL (4.30-5.70) 4.27 x10^6/uL (4.30-5.70) Hemoglobin 13.4 g/dL (13.0-17.5) 13.2 g/dL (13.0-17.5) Hematocrit 39.0 % (39.0-53.0) 37.4 % (39.0-53.0) Mean Corpuscular Volume 89 fL (79-100) 88 fL (79-100) Mean Corpuscular Hemoglobin 31 pg (25-35) 31 pg (25-35) Mean Corpuscular Hemoglobin Concent 34 g/dL (31-37) 35 g/dL (31-37) Red Cell Distribution Width 13.7 % (11.5-14.5) 13.8 % (11.5-14.5) Platelet Count 178 x10^3/uL (140-400) 173 x10^3/uL (140-400) Prothrombin Time 13.6 SEC (11.7-14.0) Prothromb Time International Ratio 1.1 (0.8-1.1) Activated Partial Thromboplast Time 33 SEC (24-38) Sodium Level 142 mmol/L (136-145) 141 mmol/L (136-145) Potassium Level 4.0 mmol/L (3.5-5.1) 3.4 mmol/L (3.5-5.1) Chloride Level 103 mmol/L (98-107) 104 mmol/L (98-107) Carbon Dioxide Level 32 mmol/L (21-32) 30 mmol/L (21-32) Anion Gap 7 (6-14) 7 (6-14) Blood Urea Nitrogen 18 mg/dL (8-26) 19 mg/dL (8-26) Creatinine 1.2 mg/dL (0.7-1.3) 1.1 mg/dL (0.7-1.3) Estimated GFR (Cockcroft-Gault) 58.0 64.1 Glucose Level 106 mg/dL (70-99) 90 mg/dL (70-99) Calcium Level 9.4 mg/dL (8.5-10.1) 9.1 mg/dL (8.5-10.1) Triglycerides Level 110 mg/dL (0-150) Cholesterol Level 169 mg/dL (0-200) LDL Cholesterol, Calculated 89 mg/dL (0-100) VLDL Cholesterol, Calculated 22 mg/dL (0-40) Non-HDL Cholesterol Calculated 111 mg/dL (0-129) HDL Cholesterol 58 mg/dL (40-60) Cholesterol/HDL Ratio 2.9 Neutrophils (%) (Auto) 53 % (31-73) Lymphocytes (%) (Auto) 32 % (24-48) Monocytes (%) (Auto) 7 % (0-9) Eosinophils (%) (Auto) 7 % (0-3) Basophils (%) (Auto) 1 % (0-3) Neutrophils # (Auto) 4.3 x10^3uL (1.8-7.7) Lymphocytes # (Auto) 2.7 x10^3/uL (1.0-4.8) Monocytes # (Auto) 0.5 x10^3/uL (0.0-1.1) Eosinophils # (Auto) 0.6 x10^3/uL (0.0-0.7) Basophils # (Auto) 0.1 x10^3/uL (0.0-0.2) BUN/Creatinine Ratio 17 (6-20) Magnesium Level 2.3 mg/dL (1.8-2.4) Total Bilirubin 0.5 mg/dL (0.2-1.0) Aspartate Amino Transf (AST/SGOT) 20 U/L (15-37) Alanine Aminotransferase (ALT/SGPT) 20 U/L (16-63) Alkaline Phosphatase 46 U/L (46-116) Total Protein 7.7 g/dL (6.4-8.2) Albumin 3.6 g/dL (3.4-5.0) Albumin/Globulin Ratio 0.9 (1.0-1.7) Thyroid Stimulating Hormone (TSH) 5.465 uIU/mL (0.358-3.74) Free Thyroxine 1.00 ng/dL (0.76-1.46) Urine Collection Type Unknown Urine Color Yellow Urine Clarity Clear Urine pH 6.0 Urine Specific [place] 1.025 Urine Protein Negative mg/dL (NEG-TRACE) Urine Glucose (UA) Negative mg/dL (NEG) Urine Ketones (Stick) Negative mg/dL (NEG) Urine Blood Negative (NEG) Urine Nitrite Negative (NEG) Urine Bilirubin Negative (NEG) Urine Urobilinogen Dipstick 0.2 mg/dL (0.2 mg/dL) Urine Leukocyte Esterase Negative (NEG) Urine RBC Occ /HPF (0-2) Urine WBC Rare /HPF (0-4) Urine Squamous Epithelial Cells None /LPF Urine Bacteria Few /HPF (0-FEW) Urine Hyaline Casts Few /HPF Urine Mucus Slight /LPF Medications Current Medications Morphine Sulfate 4 mg 1X ONCE IV ; Start 07/25/17 at 15:30; Stop 07/25/17 at 15 :31; Status DC Aspirin (Ecotrin) 162 mg [id number] PO ; Start 07/26/17 at 08:00 Enoxaparin Sodium (Lovenox 40mg Syringe) 40 mg Q24H SQ Last administered on 16:16; Start 07/25/17 at 16:00; Stop 07/26/17 at 08:51; Status DC Acetaminophen (Tylenol) 650 mg PRN Q4HRS PRN PO TEMP > 100.4F; Start 07/25/17 at 16:00 Acetaminophen (Acetaminophen Supp) 650 mg PRN Q4HRS PRN [place] TEMP > 100.4F; Start 07/25/17 at 16:00 Ondansetron HCl (Zofran) 4 mg PRN Q8HRS PRN IV NAUSEA/VOMITING; Start 07/25/17 at 17:00; Stop 07/26/17 at 16:59 Amlodipine Besylate (Norvasc) 2.5 mg DAILY PO Last administered on 07/26/17 08 :02; Start 07/26/17 at 09:00 Carvedilol (Coreg) 12.5 mg BIDWMEALS PO Last administered on 07/26/17 08:02; Start 07/26/17 at 08:00 Clopidogrel Bisulfate (Plavix) 75 mg DAILY PO Last administered on 07/26/17 08 :01; Start 07/26/17 at 09:00 Fluticasone Propionate (Flonase) 2 spray BID NS Last administered on 07/26/17 08:01; Start 07/26/17 at 09:00 Levetiracetam (Keppra) 500 mg BID PO Last administered on 07/26/17 08:01; Start 07/25/17 at 22:00 Levothyroxine Sodium (Synthroid) 50 mcg DAILY07 PO Last administered on 06:08; Start 07/26/17 at 07:00 Lisinopril (Prinivil) 20 mg BID PO Last administered on 07/26/17 08:02; Start 07/25/17 at 22:00 Simvastatin (Zocor) 10 mg QHS PO Last administered on 07/25/17 21:39; Start 07/25/17 at 22:00 Ascorbic Acid (Vitamin C) 500 mg DAILY PO Last administered on 07/26/17 08:01 ; Start 07/26/17 at 09:00 Calcium/Vitamin D (Oscal D 500mg/ 200uts) 1 tab DAILY PO Last administered on 07/26/17 08:01; Start 07/26/17 at 09:00 Multivitamins (Thera M Plus) 1 tab DAILY PO Last administered on 07/26/17 08: 01; Start 07/26/17 at 09:00 Potassium Chloride (Klor-Con) 20 meq 1X ONCE PO Last administered on 10:21; Start 07/26/17 at 09:00; Stop 07/26/17 at 09:01; Status DC Active Scripts Active Vitamin C (Ascorbate Calcium) 500 Mg Tablet 500 Mg PO DAILY Reported Citracal + D3 Gummies (Calcium Phosphate Trib/Vit D3) 1 Each Tab.chew 1 Each PO DAILY Fluticasone Propionate Nasal [place] (Fluticasone Propionate) 16 Gm [place].susp 2 [place] NS BID Levetiracetam 500 Mg Tablet 500 Mg PO BID Clopidogrel (Clopidogrel Bisulfate) 75 Mg Tablet 75 Mg PO DAILY Multi Vitamin Daily (Multivitamin) 1 Each Tablet 1 Each PO DAILY Amlodipine Besylate 2.5 Mg Tablet 2.5 Mg PO DAILY Carvedilol 12.5 Mg Tablet 1 Tab PO BID Levothyroxine Sodium 50 Mcg Tablet 1 Tab PO DAILY Simvastatin 10 Mg Tablet 1 Tab PO QHS Lisinopril 20 Mg Tablet 20 Mg PO BID Vitals/I & O Vital Sign - Last 24 Hours 07/25/17 07/25/17 07/25/17 07/25/17 14:49 15:20 15:50 16:20 Temp 97.9 97.9 Pulse 62 54 60 58 Resp 18 21 19 16 B/P (MAP) 141/93 (109) 152/80 (104) 164/77 (106) 167/73 (104) Pulse Ox 97 95 96 94 O2 Delivery Room Air Room Air Room Air Room Air 07/25/17 07/25/17 07/25/17 07/25/17 16:50 17:20 18:20 19:00 Pulse 60 50 58 58 Resp 23 21 20 20 B/P (MAP) 143/74 (97) 159/68 (98) 145/72 (96) 142/69 (93) Pulse Ox 93 94 94 95 O2 Delivery Room Air Room Air Room Air Room Air 07/25/17 07/25/17 07/25/17 07/26/17 20:30 21:39 23:10 03:20 Temp 98.2 97.9 98.2 97.9 Pulse 58 57 57 Resp 18 18 B/P (MAP) 142/69 155/65 (95) 108/60 (76) Pulse Ox 94 90 O2 Delivery Room Air Room Air Room Air 07/26/17 07/26/17 07/26/17 07/26/17 07:21 08:00 08:02 08:02 Temp 97.7 97.7 Pulse 58 58 58 Resp 19 B/P (MAP) 127/63 (84) 127/63 127/63 Pulse Ox 97 O2 Delivery Room Air Room Air 07/26/17 07/26/17 08:02 11:35 Temp 98.1 98.1 Pulse 58 47 Resp 20 B/P (MAP) 127/63 126/54 (78) Pulse Ox 96 O2 Delivery Room Air SHANNON BRANDON MD Jul 26, 2017 12:49
[2017-07-26] MEDS ORDERED: BARIUM SULFATE 40% (APPLE) 148 GM PWD. PO ONE (13:45)
--- NOTE | 2017-07-26 14:09 | RAD ---
EXAMINATION: Magnetic resonance imaging (MRI) of the brain and brainstem without contrast 07/26/2017 1:25 PM HISTORY: Increased weakness on left side. History of prior stroke. TECHNIQUE: Multiplanar multi-weighted MRI of the brain and brainstem was performed without intravenous contrast using the general brain protocol. COMPARISON: MR brain December 25, 2015 FINDINGS: The scalp and calvarium are normal. The superior sagittal sinus demonstrates normal venous flow. The corpus callosum is normal in shape and signal intensity. The posterior fossa is unremarkable. The sella appears expanded in the infundibulum appears deviated to the right. There is encephalomalacia involving the right occipital lobe. Foci of T2/FLAIR signal hyperintensity in the periventricular and subcortical white matter is compatible with moderate chronic small vessel ischemic changes. Diffusion weighted images reveal no hyperintensities to suggest acute cerebral infarction. The susceptibility weighted sequences reveal no evidence of acute or chronic hemorrhage. The ventricles are normal in size and position without evidence of hydrocephalus. Mild mucosal thickening involving the right maxillary sinus and left frontal sinus. The visualized portions of the mastoids are unremarkable. The orbits appear normal. Normal flow voids are demonstrated in the carotid arteries and basilar artery. IMPRESSION: 1. There is no acute or subacute ischemia. 2. Encephalomalacia is noted involving the right occipital lobe. Moderate chronic small vessel ischemic changes are noted in the periventricular and subcortical white matter. 3. There is subtle expansion of the sella turcica with deviation of the infundibulum to the right. Findings could be seen with a pituitary macroadenoma or other sellar neoplasm. Further evaluation with a pituitary protocol MRI is recommended. This finding is not significant changed in retrospect from the prior examination. Electronically signed by: Keeley Rogers MD (07/26/2017 2:06 PM) [id number]
--- NOTE | 2017-07-26 14:54 | RAD ---
Video dysphasia study, 07/26/2017: History: Stroke, dysphagia, possible aspiration The swallowing mechanism was examined fluoroscopically in the lateral projection while the patient ingested a variety of food materials mixed with barium. 1.5 minutes of fluoroscopy time was utilized. A single video loop was recorded by a member of the speech Department. The patient ingested the thin and thickened barium materials without difficulty. There was only minimal transient laryngeal penetration with the thin liquids. No prateek aspiration was observed. The patient ingested the pudding consistency material and the barium coated solids without difficulty. There was only minimal intermittent vallecular residue. IMPRESSION: No current evidence of aspiration.
[2017-07-26 15:20] VITALS: BP 105/62
--- NOTE | 2017-07-27 06:42 | PDOC3 ---
Chief Complaint This 82 year old male has been admitted with a chief complaint of weakness lower legs and leaning to left when walking similar to episode earlier this year that was associated with Keppra dose. He was seen last week by this HEAD BATCHER and his evaluation in the office was negative for any new findings. He was diagnosed with seizures earlier this year during admission and started on high dose of Keppra. He was seen in the office after d/c from and the Keppra dose was reduced with PT in the home ordered. His symptoms of LE weakness and leaning to the left resolved. Mrs. Guzman reports he got out of bed yesterday morning and pointed to his lower legs by the knees. She was not sure what he said and he was walking fine. During the day they ran errands and when the stopped to eat Garret got out of the car, could not walk due to extreme weakness of his LE bilaterally and leaning to the left. They immediately brought him to the ED for evaluation. A CT of the head was negative for acute findings. Labs were unremarkable. A UA was obtained per Mrs. Guzman but no result is available in the EMR. Neurology has been consulted and an MRI of the brain is pending. PT and OT have been ordered. 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 12/2015 occipital CVA residual L homonymous hemianopsia ), Seizure (2017 new onset ), Vertigo (intermittent chronic ) Heme/Onc: B12 deficiency Hepatobiliary: Cirrhosis (nonalcoholic) Musculoskeletal: Osteoarthritis Renal/: Chronic renal insuff (CKD II ) Endocrine: Hypothyroidism Past Surgical History Past Surgical History: No pertinent history Past Family History Family History: Cancer (father lung 71yo; mother breast 45yo ; ), Coronary Artery Disease (brother ), Other (seizures son ) Review of Symptoms Review of Symptoms A 14 point ROS was completed with the following noted as positive: per HPI Other systems reviewed and negative. Medications Medications reviewed and reconciled Allergy Allergies Coded Allergies Type Severity Reaction Last Updated Verified Penicillins Allergy Intermediate Itching 12/25/15 Yes Sulfa (Sulfonamide Antibiotics) Allergy Intermediate PARALISIS OF LOWER LEGS No tamsulosin Allergy Intermediate hives 12/25/15 Yes Physical Exam Physical Exam General appearance - alert,well appearing, and in no distress and oriented to person, place, and time Mental Status - alert, oriented to person, place, and time, affect appropriate to mood Head - normal Chest - clear to auscultation, no wheezes, rales or rhonchi, symmetric air entry Heart - S1 and S2 normal Abdomen - soft, nontender, nondistended, no masses or organomegaly Neurological - alert and oriented Musculoskeletal - no muscular tenderness noted Extremities - no pedal edema Skin - warm and dry VTE Prophylaxis Ordered VTE Prophylaxis Devices: Yes VTE Pharmacological Prophylaxi: No Assessment Labs Laboratory Tests Test 07/25/17 14:45 07/25/17 14:50 07/26/17 05:25 Glucose (Fingerstick) 99 mg/dL (70-99) White Blood Count 8.3 x10^3/uL (4.0-11.0) 8.2 x10^3/uL (4.0-11.0) Red Blood Count 4.37 x10^6/uL (4.30-5.70) 4.27 x10^6/uL (4.30-5.70) Hemoglobin 13.4 g/dL (13.0-17.5) 13.2 g/dL (13.0-17.5) Hematocrit 39.0 % (39.0-53.0) 37.4 % (39.0-53.0) Mean Corpuscular Volume 89 fL (79-100) 88 fL (79-100) Mean Corpuscular Hemoglobin 31 pg (25-35) 31 pg (25-35) Mean Corpuscular Hemoglobin Concent 34 g/dL (31-37) 35 g/dL (31-37) Red Cell Distribution Width 13.7 % (11.5-14.5) 13.8 % (11.5-14.5) Platelet Count 178 x10^3/uL (140-400) 173 x10^3/uL (140-400) Prothrombin Time 13.6 SEC (11.7-14.0) Prothromb Time International Ratio 1.1 (0.8-1.1) Activated Partial Thromboplast Time 33 SEC (24-38) Sodium Level 142 mmol/L (136-145) 141 mmol/L (136-145) Potassium Level 4.0 mmol/L (3.5-5.1) 3.4 mmol/L (3.5-5.1) Chloride Level 103 mmol/L (98-107) 104 mmol/L (98-107) Carbon Dioxide Level 32 mmol/L (21-32) 30 mmol/L (21-32) Anion Gap 7 (6-14) 7 (6-14) Blood Urea Nitrogen 18 mg/dL (8-26) 19 mg/dL (8-26) Creatinine 1.2 mg/dL (0.7-1.3) 1.1 mg/dL (0.7-1.3) Estimated GFR (Cockcroft-Gault) 58.0 64.1 Glucose Level 106 mg/dL (70-99) 90 mg/dL (70-99) Calcium Level 9.4 mg/dL (8.5-10.1) 9.1 mg/dL (8.5-10.1) Triglycerides Level 110 mg/dL (0-150) Cholesterol Level 169 mg/dL (0-200) LDL Cholesterol, Calculated 89 mg/dL (0-100) VLDL Cholesterol, Calculated 22 mg/dL (0-40) Non-HDL Cholesterol Calculated 111 mg/dL (0-129) HDL Cholesterol 58 mg/dL (40-60) Cholesterol/HDL Ratio 2.9 Neutrophils (%) (Auto) 53 % (31-73) Lymphocytes (%) (Auto) 32 % (24-48) Monocytes (%) (Auto) 7 % (0-9) Eosinophils (%) (Auto) 7 % (0-3) Basophils (%) (Auto) 1 % (0-3) Neutrophils # (Auto) 4.3 x10^3uL (1.8-7.7) Lymphocytes # (Auto) 2.7 x10^3/uL (1.0-4.8) Monocytes # (Auto) 0.5 x10^3/uL (0.0-1.1) Eosinophils # (Auto) 0.6 x10^3/uL (0.0-0.7) Basophils # (Auto) 0.1 x10^3/uL (0.0-0.2) BUN/Creatinine Ratio 17 (6-20) Magnesium Level 2.3 mg/dL (1.8-2.4) Total Bilirubin 0.5 mg/dL (0.2-1.0) Aspartate Amino Transf (AST/SGOT) 20 U/L (15-37) Alanine Aminotransferase (ALT/SGPT) 20 U/L (16-63) Alkaline Phosphatase 46 U/L (46-116) Total Protein 7.7 g/dL (6.4-8.2) Albumin 3.6 g/dL (3.4-5.0) Albumin/Globulin Ratio 0.9 (1.0-1.7) Laboratory Tests Test 07/25/17 14:45 07/25/17 14:50 07/26/17 05:25 Glucose (Fingerstick) 99 mg/dL (70-99) White Blood Count 8.3 x10^3/uL (4.0-11.0) 8.2 x10^3/uL (4.0-11.0) Red Blood Count 4.37 x10^6/uL (4.30-5.70) 4.27 x10^6/uL (4.30-5.70) Hemoglobin 13.4 g/dL (13.0-17.5) 13.2 g/dL (13.0-17.5) Hematocrit 39.0 % (39.0-53.0) 37.4 % (39.0-53.0) Mean Corpuscular Volume 89 fL (79-100) 88 fL (79-100) Mean Corpuscular Hemoglobin 31 pg (25-35) 31 pg (25-35) Mean Corpuscular Hemoglobin Concent 34 g/dL (31-37) 35 g/dL (31-37) Red Cell Distribution Width 13.7 % (11.5-14.5) 13.8 % (11.5-14.5) Platelet Count 178 x10^3/uL (140-400) 173 x10^3/uL (140-400) Prothrombin Time 13.6 SEC (11.7-14.0) Prothromb Time International Ratio 1.1 (0.8-1.1) Activated Partial Thromboplast Time 33 SEC (24-38) Sodium Level 142 mmol/L (136-145) 141 mmol/L (136-145) Potassium Level 4.0 mmol/L (3.5-5.1) 3.4 mmol/L (3.5-5.1) Chloride Level 103 mmol/L (98-107) 104 mmol/L (98-107) Carbon Dioxide Level 32 mmol/L (21-32) 30 mmol/L (21-32) Anion Gap 7 (6-14) 7 (6-14) Blood Urea Nitrogen 18 mg/dL (8-26) 19 mg/dL (8-26) Creatinine 1.2 mg/dL (0.7-1.3) 1.1 mg/dL (0.7-1.3) Estimated GFR (Cockcroft-Gault) 58.0 64.1 Glucose Level 106 mg/dL (70-99) 90 mg/dL (70-99) Calcium Level 9.4 mg/dL (8.5-10.1) 9.1 mg/dL (8.5-10.1) Triglycerides Level 110 mg/dL (0-150) Cholesterol Level 169 mg/dL (0-200) LDL Cholesterol, Calculated 89 mg/dL (0-100) VLDL Cholesterol, Calculated 22 mg/dL (0-40) Non-HDL Cholesterol Calculated 111 mg/dL (0-129) HDL Cholesterol 58 mg/dL (40-60) Cholesterol/HDL Ratio 2.9 Neutrophils (%) (Auto) 53 % (31-73) Lymphocytes (%) (Auto) 32 % (24-48) Monocytes (%) (Auto) 7 % (0-9) Eosinophils (%) (Auto) 7 % (0-3) Basophils (%) (Auto) 1 % (0-3) Neutrophils # (Auto) 4.3 x10^3uL (1.8-7.7) Lymphocytes # (Auto) 2.7 x10^3/uL (1.0-4.8) Monocytes # (Auto) 0.5 x10^3/uL (0.0-1.1) Eosinophils # (Auto) 0.6 x10^3/uL (0.0-0.7) Basophils # (Auto) 0.1 x10^3/uL (0.0-0.2) BUN/Creatinine Ratio 17 (6-20) Magnesium Level 2.3 mg/dL (1.8-2.4) Total Bilirubin 0.5 mg/dL (0.2-1.0) Aspartate Amino Transf (AST/SGOT) 20 U/L (15-37) Alanine Aminotransferase (ALT/SGPT) 20 U/L (16-63) Alkaline Phosphatase 46 U/L (46-116) Total Protein 7.7 g/dL (6.4-8.2) Albumin 3.6 g/dL (3.4-5.0) Albumin/Globulin Ratio 0.9 (1.0-1.7) Plan Plan: Final diagnosis: 1. Lower extremity weakness with leaning to left side due to over exertion - neg CVA 2. seizures onset 2016 3. 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 accelerated HTN 5. hyperlipidemia 6. hypothyroidism 7. mild CM 8. moderate chronic PCL malnutrition 9. moderate weakness and debility 10. anemia B12 deficiency 11. diastolic CHF EF 55-60% 12. moderate AR 13. mild MR 14. h/o old lacunar infarct R thalamus, L frontal, ricardo 15. h/o CVA 12/2015 post large infarct R temporal lobe PLAN: 07/26/17 lower extremity weakness, lean to left - CT head acute negative - MRI pending - neurology consult - check thyroid and UA - doubt Keppra is cause - PT OT consult - fall precautions - Mg 2.3 hypokalemia - Admit K 4.0 07/25 K 3.4 - 20KCL po x 1 - recheck AM seizures - continue Keppra HTN - resume home meds hyperlipidemia - Lipids controlled continue statin elevated BS - check Hba1c, no h/o DM family DVt/ GI prophylaxis - Pepcid bid - SCD/THEA - ambulate - stop lovenox, For more details regarding further plans, please refer to the orders. Will plan home with HHN PT OT. DC initiated. MRI negative. Discharged home with HHN PT OT. Please see Discharge orders. SHAE BAEZ APRN Jul 27, 2017 06:42
== END 2017-07-26 15:50 | disposition home or self-care (01) | DRG 923 ==
LOC: ER 14:38 → 6 SOUTH 17:08
PROVIDERS: ADMIT Internal Medicine; ATTEND Internal Medicine
DX: T73.3XXA Exhaustion due to excessive exertion, initial encounter (principal); E44.0 Moderate protein-calorie malnutrition; I42.9 Cardiomyopathy, unspecified; I13.0 Hypertensive heart and chronic kidney disease with heart failure and stage 1 through stage 4 chronic kidney disease, or unspecified chronic kidney disease; G93.89 Other specified disorders of brain; D51.9 Vitamin B12 deficiency anemia, unspecified; I50.30 Unspecified diastolic (congestive) heart failure; H53.462 Homonymous bilateral field defects, left side; X58.XXXA Exposure to other specified factors, initial encounter; G40.909 Epilepsy, unspecified, not intractable, without status epilepticus; E03.9 Hypothyroidism, unspecified; E78.00 Pure hypercholesterolemia, unspecified; E78.5 Hyperlipidemia, unspecified; E87.6 Hypokalemia; K74.60 Unspecified cirrhosis of liver; M17.0 Bilateral primary osteoarthritis of knee; N18.2 Chronic kidney disease, stage 2 (mild); Z80.1 Family history of malignant neoplasm of trachea, bronchus and lung; Z82.49 Family history of ischemic heart disease and other diseases of the circulatory system; Z68.27 Body mass index [BMI] 27.0-27.9, adult; Z86.73 Personal history of transient ischemic attack (TIA), and cerebral infarction without residual deficits; Z87.01 Personal history of pneumonia (recurrent); Z88.0 Allergy status to penicillin; Z88.2 Allergy status to sulfonamides; Z88.8 Allergy status to other drugs, medicaments and biological substances
CPT/HCPCS: 36415; 70450; 70551; 74230; 80048; 80053; 80061; 81001; 82962; 83036; 83735; 84439; 84443; 85025; 85027; 85610; 85730; 93005; 96372; J1650; 92610; 92611; 97110; 99285-25

== ENCOUNTER → 2018-02-21 | Outpatient (CLI) | payer MEDICARE, BC ==
[2018-02-21 12:28] LABS: ADD MAN DIFF? NO
[2018-02-21 12:38] LABS: BASO # 0.1 x10^3/uL (0.0-0.2); BASO % 1 % (0-3); EOS # 0.6 x10^3/uL (0.0-0.7); EOS % 8 % (0-3); HEMATOCRIT 42.3 % (39.0-53.0); HEMOGLOBIN 14.6 g/dL (13.0-17.5); LYMPH # 1.5 x10^3/uL (1.0-4.8); LYMPH % 20 % (24-48); MEAN CORPUSCULAR HEMOGLOBIN 31 pg (25-35); MEAN CORPUSCULAR HGB CONC 35 g/dL (31-37); MEAN CORPUSCULAR VOLUME 88 fL (79-100); MONO # 0.5 x10^3/uL (0.0-1.1); MONO % 6 % (0-9); NEUT # 4.8 x10^3uL (1.8-7.7); NEUT % 64 % (31-73); PLATELET COUNT 198 x10^3/uL (140-400); RED BLOOD COUNT 4.79 x10^6/uL (4.30-5.70); WHITE BLOOD COUNT 7.5 x10^3/uL (4.0-11.0)
[2018-02-21 13:05] LABS: ALBUMIN 3.6 g/dL (3.4-5.0); ALBUMIN/GLOBULIN RATIO 0.8 (1.0-1.7); ALK PHOS 61 U/L (46-116); ALT (SGPT) 16 U/L (16-63); ANION GAP 8 (6-14); AST (SGOT) 19 U/L (15-37); BLOOD UREA NITROGEN 22 mg/dL (8-26); BUN/CREATININE RATIO 22 (6-20); CALCIUM 9.2 mg/dL (8.5-10.1); CARBON DIOXIDE 31 mmol/L (21-32); CHLORIDE 104 mmol/L (98-107); CREATINE KINASE 65 U/L (39-308); GFR 71.5; GLUCOSE 88 mg/dL (70-99); POTASSIUM 4.1 mmol/L (3.5-5.1); SODIUM 143 mmol/L (136-145); TOTAL BILIRUBIN 0.6 mg/dL (0.2-1.0); TOTAL PROTEIN 7.9 g/dL (6.4-8.2)
[2018-02-21 13:12] LABS: VITAMIN-B12 481 pg/mL (247-911)
[2018-02-21 13:14] LABS: FREE T4 0.89 ng/dL (0.76-1.46)
[2018-02-21 13:14] LABS: THYROID STIM HORMONE (TSH) 4.622 uIU/mL (0.358-3.74)
== END | disposition home or self-care (01) ==
LOC: LAB 12:08
DX: D49.7 Neoplasm of unspecified behavior of endocrine glands and other parts of nervous system (principal)
CPT/HCPCS: 36415; 80053; 82306; 82550; 82607; 84439; 84443; 85025

== ENCOUNTER → 2018-02-28 | Outpatient (CLI) | payer MEDICARE, BC ==
[2018-02-28] MEDS: GADOBUTROL 7.5 MMOL/7.5 ML VIAL IV (10:53)
== END | disposition home or self-care (01) ==
LOC: RT 08:06
DX: D49.7 Neoplasm of unspecified behavior of endocrine glands and other parts of nervous system (principal); R26.81 Unsteadiness on feet
CPT/HCPCS: 70553; A9585

== ENCOUNTER → 2018-03-23 | Outpatient (CLI) | payer MEDICARE, BC ==
[2018-03-23 15:18] LABS: THYROID STIM HORMONE (TSH) 0.711 uIU/mL (0.358-3.74)
[2018-03-24 07:34] LABS: LUTEINIZING HORMONE 5.7 mIU/mL (1.7-8.6); PROLACTIN 34.8 ng/mL (4.0-15.2)
[2018-03-24 07:34] LABS: FSH 4.6 mIU/mL (1.5-12.4)
[2018-03-24 23:13] LABS: GROWTH HORMONE 0.2 ng/mL (0.0-10.0)
== END | disposition home or self-care (01) ==
LOC: LAB 14:10
DX: D49.7 Neoplasm of unspecified behavior of endocrine glands and other parts of nervous system (principal)
CPT/HCPCS: 36415; 82533; 83001; 83002; 83003; 84146; 84443